=== PATIENT | male | born 1990 | race Caucasian/White ===

== ENCOUNTER 2016-08-02 10:39 | Day surgery (SDC) | payer BC ==
[~2016-08-02 10:39] MED LIST: FLINTSTONES1 EAC1 PO; IBUPROFEN200 M2 PO; ON NO MEDS; ROBITUSSIN-DM120 ML; TYLENOL EXTRA500 M1 PO
[2016-08-03] MEDS ORDERED: ULTRAM50 M1 PO (12:04)
[2016-08-03] MEDS ORDERED: PERCOCET 5-3251 EACH PO (12:05)
[2016-08-03] MEDS ORDERED: TYLENOL325 M2 PO (12:06)
== END 2016-08-03 14:10 ==
LOC: SRG 10:39 → SHSC 10:40 → ORE 13:05 → PACU 16:27 → 5EC 18:30
PROC: 0SBD4ZZ Excision of Left Knee Joint, Percutaneous Endoscopic Approach (ICD-10-PCS; principal; 2016-08-02)
PROC: 0SBD4ZZ Excision of Left Knee Joint, Percutaneous Endoscopic Approach (ICD-10-PCS; 2016-08-02)
PROC: [UNRECOGNIZED PROCEDURE] (2016-08-02)
DX: T84.89XA Other specified complication of internal orthopedic prosthetic devices, implants and grafts, initial encounter (principal); M22.42 Chondromalacia patellae, left knee; S83.212A Bucket-handle tear of medial meniscus, current injury, left knee, initial encounter; S83.252A Bucket-handle tear of lateral meniscus, current injury, left knee, initial encounter; F10.10 Alcohol abuse, uncomplicated; Z79.899 Other long term (current) drug therapy; Z98.890 Other specified postprocedural states
CPT/HCPCS: C1713; C1763; G8978-GP-CI; G8979-GP-CI; G8980-GP-CI; J0690; J1885; J2250; J7050